=== PATIENT | male | born 1985 | race African-American/Black ===

== ENCOUNTER 2024-02-29 05:07 | Emergency (ER) | payer OTHER ==
[~2024-02-29] VITALS: Ht 185.4 cm; Wt 106.6 kg
[2024-02-29] MEDS ORDERED: PRED50TA PO (06:38)
[2024-02-29] MEDS ORDERED: P-EP-295 PO (06:38)
[2024-02-29] MEDS ORDERED: AZIT250T PO (06:38)
[2024-02-29] MEDS ORDERED: FLUT16SP16 BNOSTRILS (06:38)
[2024-02-29 06:44] VITALS: BP 145/91; TEMP 98.6; O2SAT 98
== END 2024-02-29 06:44 | disposition home or self-care (01) ==
LOC: ER 05:11
DX: R09.81 Nasal congestion (principal); J32.9 Chronic sinusitis, unspecified

== ENCOUNTER 2024-09-11 07:21 | Emergency (ER) | payer MEDICAID, OTHER ==
[~2024-09-11] VITALS: Ht 190.5 cm; Wt 100.7 kg
[~2024-09-11 07:21] MED LIST: AZIT250T PO; FLUT16SP16 BNOSTRILS; P-EP-295 PO; PRED50TA PO
[2024-09-11 07:42] VITALS: BP 159/101; TEMP 98.6; O2SAT 99
[2024-09-11] MEDS ORDERED: IBUP-1490 PO (10:11)
== END 2024-09-11 10:23 | disposition home or self-care (01) ==
LOC: ER 07:26
DX: J02.9 Acute pharyngitis, unspecified (principal); Z20.822 Contact with and (suspected) exposure to COVID-19
CPT/HCPCS: 86403-TC; 87070-TC